=== PATIENT | male | born 1950 | race African-American/Black ===

== ENCOUNTER 2016-09-21 10:12 | Day surgery (SDC) | payer BC ==
[2016-09-02 09:57] VITALS: Ht 167.6 cm; Wt 65.6 kg
--- NOTE | 2016-09-02 10:21 | PAT Medication Instructions ---
Service Date September 02, 2016. Current Home Medication List Aspirin (Aspirin Ec), 81 MG PO Q2D Cholecalciferol (Vitamin D3), 1 CAP PO Q2D Finasteride (Proscar), 5 MG PO QAM Levothyroxine Sodium (Synthroid), 75 MCG PO QAM Tamsulosin HCl (Tamsulosin HCl), 0.4 MG PO QPM [Vitamin B], 1 TAB PO QAM Medication Instructions For Your Scheduled Surgery - Take the following medications the morning of surgery with a sip of water OTHERWISE NOTHING TO EAT OR DRINK AFTER MIDNIGHT: Finasteride (Proscar), 5 MG PO QAM Levothyroxine Sodium (Synthroid), 75 MCG PO QAM - Take the following medications as scheduled the night before surgery: Aspirin (Aspirin Ec), 81 MG PO Q2D (every other day) Cholecalciferol (Vitamin D3), 1 CAP PO Q2D (every other day) Tamsulosin HCl (Tamsulosin HCl), 0.4 MG PO QPM [Vitamin B], 1 TAB PO QPM If you have any questions please call us at [phone] or [phone] or [phone]
--- NOTE | 2016-09-02 10:45 | DIAGNOSTIC IMAGING REPORT ---
TWO VIEW CHEST CLINICAL HISTORY: Preoperative examination. FINDINGS: PA and lateral chest radiographs are compared to study dated 10/26/2013 and correlated with chest CT dated 07/14/2010. The heart is enlarged. The pulmonary vasculature is noncongested. Chronic interstitial thickening is unchanged. Biapical scarring is observed. The lungs and pleural spaces are otherwise clear. There is no pneumothorax. The skeletal structures appear osteopenic. The bony thorax appears intact. IMPRESSION: Cardiomegaly with no active disease in the chest. Electronically signed by: Mj Castillo M.D. 09/02/2016 10:44 AM Dictated Date/Time: 09/02/2016 10:43 AM
[2016-09-02 11:00] LABS: URINE APPEARANCE CLEAR (CLEAR); URINE BILIRUBIN NEG (NEG); URINE COLOR YELLOW; URINE NITRITE NEG (NEG); URINE PH 8.5 (4.5-7.5); URINE SPECIFIC GRAVITY 1.014 (1.000-1.030); UROBILINOGEN NEG (NEG)
[2016-09-02 11:01] LABS: HEMATOCRIT 46.8 % (42-52); MEAN CELL VOLUME 91.1 fL (80-100); MEAN CORPUSCULAR HEMOGLOBIN 29.6 pg (25-34); MEAN CORPUSCULAR HGB CONC 32.5 g/dl (32-36); MEAN PLATELET VOLUME 10.1 fL (7.4-10.4); PLATELET COUNT 178 K/uL (130-400); RED BLOOD COUNT 5.14 M/uL (4.7-6.1); WHITE BLOOD COUNT 3.87 K/uL (4.8-10.8)
[2016-09-02 11:06] LABS: MANUAL MICROSCOPIC REQUIRED? NO; REVIEW REQ? NO
[2016-09-02 11:51] LABS: BASO % 0.5 %; BASO ABS # 0.02 K/uL (0-0.2); COMPLETE YES; LYMPH % 53.7 %; LYMPH ABS # 2.08 K/uL (1.2-3.4); MONO % 5.2 %; NEUT % 38.6 %
[2016-09-02 13:22] LABS: BUN/CREATININE RATIO 15.3 (10-20); CREATININE 1.2 mg/dl (0.60-1.40)
[2016-09-02 13:30] LABS: CALCIUM 9.6 mg/dl (8.5-10.1)
[~2016-09-21] VITALS: Ht 167.6 cm; Wt 65.6 kg
[~2016-09-21 10:12] MED LIST: ASPI81TA28 PO; CHOL2000 PO; CIPROFLOXACIN 400MG / D5W IV SCH; FINA5TAB PO; FLM4 PO; LACTATED RINGER'S 1000ML 1,000 ML IV SCH; LEVO75TA PO; VITAMIN B PO
[2016-09-21] MEDS ORDERED: PROPOFOL IV EMULSION 10 MG/ML 20 ML VIAL IV ONE (10:27)
[2016-09-21] MEDS ORDERED: LIDOCAINE HCL 2% 2 ML VIAL (20MG/ML) ONE (10:27)
[2016-09-21] MEDS ORDERED: MIDAZOLAM HCL 1 MG/ML 2ML VIAL ONE (10:27)
[2016-09-21] MEDS ORDERED: ONDANSETRON INJ 2 MG/ML 2 ML VIAL ONE (10:27)
[2016-09-21] MEDS ORDERED: FENTANYL CITRATE INJ 50 MCG/1 ML 2 ML VIAL ONE (10:27)
[2016-09-21] MEDS ORDERED: EpHEDrine SULFATE INJ 50 MG/ML AMP IV PRN (10:30)
[2016-09-21] MEDS ORDERED: FENTANYL CITRATE INJ 50 MCG/1 ML 2 ML VIAL IV PRN (10:30)
[2016-09-21] MEDS ORDERED: ATROPINE SULFATE 0.1 MG/ML 5ML SYR IV PRN (10:30)
[2016-09-21] MEDS ORDERED: ONDANSETRON INJ 2 MG/ML 2 ML VIAL IV PRN (10:30)
[2016-09-21 10:33] VITALS: BP 97/64; PULSE 44; TEMP 36.4; O2SAT 100
--- NOTE | 2016-09-21 10:48 | History & Physical Bridge Note ---
H&P Re-Evaluation Bridge Note: I have examined the patient, reviewed the History & Physical and in the interval since the performance of the History & Physical I have noted the following changes of clinical significance: No changes noted
[2016-09-21] MEDS ORDERED: CIPR-255 PO (10:49)
--- NOTE | 2016-09-21 10:50 | Discharge Instructions ---
Discharge Instructions Date of Service Sep 21, 2016. Admission Reason for Admission: Benign Prostatic Hyperplasia Discharge Discharge Diagnosis / Problem: BPH Discharge Goals Goal(s): Decrease discomfort, Improve function, Increase independence, Improve disease control, Prevent Disease Progression Activity Recommendations Activity Limitations: resume your previous activity Lifting Limitations: none Exercise/Sports Limitations: none May Resume Sexual Activity: when tolerated Shower/Bathe: no limitations Driving or Machine Use: resume 1 day after discharge . Discharge Diet Recommended Diet: Regular Diet Pending Studies Studies pending at discharge: no Medical Emergencies . Who to Call and When: Medical Emergencies: If at any time you feel your situation is an emergency, please call 911 immediately. . Non-Emergent Contact Non-Emergency issues call your: Urologist Call Non-Emergent contact if: you have a fever, temperature is above 101.5, your pain is not controlled, your pain is worsening . . "Provider Documentation" section prepared by Franklyn Antoine. . VTE Core Measure Inpt VTE Proph given/why not?: Treatment not indicated
[2016-09-21] MEDS ORDERED: EpHEDrine SULFATE 50MG/5ML SYR ONE (11:09)
--- NOTE | 2016-09-21 11:35 | [facility] Post Operative Brief Note ---
Immediate Operative Summary Operative Date Sep 21, 2016. Pre-Operative Diagnosis Benign Prostactic Hyperplasia Post-Operative Diagnosis Benign Prostactic Hyperplasia Procedure(s) Performed Cystoscopy with Urolift Surgeon Dr. Codi Blue [address] Monitor Surgeon(s) none Estimated Blood Loss 0mL Findings Lateral lobe hypertrophy, moderately high bladder neck. 4 total implants used. Specimens none per surgeon Drains none Anesthesia MAC Complication(s) None Disposition Recovery Room / PACU (stable)
[2016-09-21] MEDS ORDERED: ACETAMINOPHEN 325 MG TAB PO PRN (11:45)
[2016-09-21] MEDS ORDERED: HYDROCODONE/ACETAMOPHEN 5/325MG TAB PO PRN ×2 (11:45)
[2016-09-21 12:00] VITALS: BP 93/61; PULSE 54; TEMP 36.1; O2SAT 99
--- NOTE | 2016-09-21 12:02 | Anesthesiology Progress Note ---
Anesthesia Post Op Note Date & Time Sep 21, 2016 at 12:02 Vital Signs Pain Intensity: 0 Vital Signs Past 12 Hours Date Time Temp Pulse Resp B/P (MAP) Pulse Ox O2 Delivery O2 Flow Rate FiO2 09/21/16 11:55 36.5 45 14 92/58 95 Room Air 09/21/16 11:45 60 17 104/60 100 Mask 10 09/21/16 11:35 47 14 98/51 100 Mask 10 09/21/16 11:27 36.4 58 14 89/51 100 Mask 10 09/21/16 10:33 36.4 44 20 97/64 (75) 100 Room Air Notes Mental Status: alert / awake / arousable, participated in evaluation Pt Amnestic to Procedure: Yes Nausea / Vomiting: adequately controlled Pain: adequately controlled Airway Patency, RR, SpO2: stable & adequate BP & HR: stable & adequate Hydration State: stable & adequate Anesthetic Complications: no major complications apparent
--- NOTE | 2016-09-21 12:11 | OPERATIVE REPORT ---
DATE OF OPERATION: 09/21/2016 PREOPERATIVE DIAGNOSIS: Benign prostatic hypertrophy. POSTOPERATIVE DIAGNOSIS: Benign prostatic hypertrophy. PROCEDURES PERFORMED: Cystoscopy and UroLift prostatic urethral lift. ANESTHESIA: Sedation. ESTIMATED BLOOD LOSS: 0. URINE OUTPUT: Not recorded. SPECIMENS: There were no specimens. DRAINS: There were no drains. COMPLICATIONS: There were no complications. DESCRIPTION OF THE PROCEDURE: Jonathan Patiño was identified in the preoperative holding area. Appropriate informed consents were reviewed and completed and the patient was transported to the operating suite. Upon arrival, he received appropriate preoperative antibiotics in the form of ciprofloxacin. Adequate sedation was achieved and he was placed in dorsal lithotomy position, where he was sterilely prepped and draped in standard fashion. I passed a cystoscope per urethra and inspected the anterior urethra. In the bulb of the penis, there was no noted stricture and the prostate was inspected and noted to have lateral lobe hypertrophy and a relatively high bladder neck somewhat constricted. There was no notable intravesical median lobe. Inspection of the bladder was carried out and he was found to be free of any mucosal disease or abnormalities. Following this full inspection, I exchanged the visual obturator for the device itself. My first device was implanted on the patient's left hand side approximately 2 centimeters from the bladder neck in the anterior portion of the left side of the prostate. I placed a second device in mirror image position on the right hand side. The device was placed by withdrawing my scope to the level of the verumontanum then adjusting to just into the anterior half of the prostate on the left. The next device was placed in a mirror image location on the right side. Inspection at that time of the verumontanum revealed clear anterior channel up to the bladder. There was excellent hemostasis. The patient was subsequently left with a moderately full bladder, reversed from anesthesia and sent to the PACU in stable condition. I attest to the content of the Intraoperative Record and any orders documented therein. Any exceptions are noted below. URBANO
[2016-09-21 12:29] VITALS: BP 92/66; PULSE 50; TEMP 36.1; O2SAT 99
== END 2016-09-21 12:42 | disposition home or self-care (01) ==
LOC: C.ACU 10:12
PROVIDERS: ATTEND Urology
DX: N40.0 Benign prostatic hyperplasia without lower urinary tract symptoms (principal); Z79.82 Long term (current) use of aspirin

== ENCOUNTER → 2017-07-28 | Outpatient (CLI) | payer BC, OTHER ==
[~2017-07-28] MED LIST changes: +CIPR-255 PO; -CIPROFLOXACIN 400MG / D5W IV SCH; -LACTATED RINGER'S 1000ML 1,000 ML IV SCH
== END | disposition home or self-care (01) ==
LOC: C.RDSM 08:58
PROVIDERS: ATTEND Family Medicine
DX: M76.61 Achilles tendinitis, right leg (principal); M25.562 Pain in left knee